=== PATIENT | female | born 1980 ===

== ENCOUNTER 2017-09-25 20:59 | Emergency (ER) | payer SELFPAY ==
[2017-09-25 21:12] VITALS: BP 121/77; PULSE 76; RESP 18; TEMP 98.5; O2SAT 99
[2017-09-25] MEDS ORDERED: DiphenhydrAMINE 50 mg/ml Inj IM STA (21:38)
[2017-09-25] MEDS ORDERED: DiphenhydrAMINE 50 mg/ml Inj ONE (21:41)
--- NOTE | 2017-09-25 21:46 | ED PDOC ---
HPI: General Adult Chief Complaint (Provider): Itching History Per: Patient History/Exam Limitations: no limitations Onset/Duration Of Symptoms: Days (x3) Current Symptoms Are (Timing): Still Present <Karlie Conti - Last Filed: 09/25/17 23:46> <Ene Valenzuela - Last Filed: 09/27/17 14:30> Time Seen by Provider: 09/25/17 21:35 Chief Complaint (Nursing): Fever Additional Complaint(s): 36 year old female presented to ED complaining of having intolerable itching on hands and feet since . She indicates having a temperature of 103 on and a temperature today of 102 today. Patient also feels sharp needle like pain in feet bilaterally. She reports seeing her PCP who had a bloodwork done and prescribed biaxin which she took 1 tablet of today. She applied hydrocortisone on her skin but symptoms continued. Patient states that she visited a hotel 10 days ago but doesn't feel it is related to her current symptoms. Denied ill contacts. PCP: Jordon Downing (Karlie Conti) Supervising Attending Note <Karlie Conti - Last Filed: 09/25/17 23:46> - Supervising Attending Note The Documented history was done by the: Physician Supervisor [employer] The documented physical exam was done by the: Physician Supervisor [employer], Attending Physician - Attestation: I have personally seen and examined this patient.: Yes I have fully participated in the care of the patient.: Yes I have reviewed all pertinent clinical information, including history, physical exam and plan: Yes <Ene Valenzuela - Last Filed: 09/27/17 14:30> - Notes: Notes:: papular erythematous lesions to hands, feet, and face (Ene Valenzuela) Past Medical History Reviewed: Historical Data, Nursing Documentation, Vital Signs - Medical History PMH: No Chronic Diseases - Surgical History Surgical History: No Surg Hx - Family History Family History: States: Unknown Family Hx - Social History Current smoker - smoking cessation education provided: No Alcohol: None Drugs: Denies <Karlie Conti - Last Filed: 09/25/17 23:46> <Ene Valenzuela - Last Filed: 09/27/17 14:30> Vital Signs: Last Vital Signs Temp 98.5 F 09/25/17 22:05 Pulse 76 09/25/17 21:08 Resp 18 09/25/17 21:08 BP 121/77 09/25/17 21:08 Pulse Ox 99 09/25/17 23:46 - Home Medications Home Medications: Ambulatory Orders Medication Instructions Recorded Clarithromycin [Clarithromycin ER] 500 mg PO BID 09/25/17 Ibuprofen [Motrin] 600 mg PO Q6H 09/25/17 hydrOXYzine Pamoate [Vistaril] 50 mg PO Q6 PRN #24 cap 09/25/17 - Allergies Allergies/Adverse Reactions: Allergies Allergy/AdvReac Type Severity Reaction Status Date / Time No Known Allergies Allergy Verified 09/25/17 21:07 Review of Systems ROS Statement: Except As Marked, All Systems Reviewed And Found Negative Skin: Positive for: Other (Itching on hands and feet) <Karlie Conti - Last Filed: 09/25/17 23:46> Physical Exam - Reviewed Nursing Documentation Reviewed: Yes Vital Signs Reviewed: Yes - Physical Exam Appears: Positive for: Non-toxic, No Acute Distress Head Exam: Positive for: ATRAUMATIC, NORMAL INSPECTION, NORMOCEPHALIC Eye Exam: Positive for: Normal appearance ENT: Positive for: Normal ENT Inspection Neck: Positive for: Normal, Painless ROM Extremity: Positive for: Normal ROM Neurologic/Psych: Positive for: Alert, Oriented <Karlie Conti - Last Filed: 09/25/17 23:46> <Ene Valenzuela - Last Filed: 09/27/17 14:30> - Physical Exam Comments: SKIN: Small papular lesions on bilateral ear lobes, palmar surface of hand, and web spaces of feet. (-) burowing (Karlie Conti) - ECG O2 Sat by Pulse Oximetry: 99 (RA) Pulse Ox Interpretation: Normal <Karlie Conti - Last Filed: 09/25/17 23:46> Medical Decision Making <Karlie Conti - Last Filed: 09/25/17 23:46> <Ene Valenzuela - Last Filed: 09/27/17 14:30> Medical Decision Making: Initial Impression: Itching on hands and feet Initial Plan: Benadryl 50mg IM Scribe Attestation: Documented by Peewee Sarabia acting as a scribe for Karlie GARCIA. Provider Scribe Attestation: All medical record entries made by the Scribe were at my direction and personally dictated by me. I have reviewed the chart and agree that the record accurately reflects my personal performance of the history, physical exam, medical decision making, and the department course for this patient. I have also personally directed, reviewed, and agree with the discharge instructions and disposition. (Karlie Conti) Disposition - Patient ED Disposition Is Patient to be Admitted: No - Disposition Disposition: Routine/Home Disposition Time: 23:46 <Karlie Conti - Last Filed: 09/25/17 23:46> <Ene Valenzuela - Last Filed: 09/27/17 14:30> - Clinical Impression Clinical Impression: Coxsackie viral disease - Disposition Condition: FAIR Prescriptions: hydrOXYzine Pamoate [Vistaril] 50 mg PO Q6 PRN #24 cap PRN Reason: Itching / Pruritus Instructions: Hand, Foot, and Mouth Disease (DC) Forms: [facility] ED School/Work Excuse Print Language: HUNGARIAN
== END 2017-09-25 22:06 | disposition home or self-care (01) ==
LOC: H.ER 20:59
DX: B34.1 Enterovirus infection, unspecified (principal)
CPT/HCPCS: 81025; 96372; 99285; J1200